=== PATIENT | female | born 1955 | race Caucasian/White ===

== ENCOUNTER 2024-03-04 19:43 | Emergency (ER) | payer MEDICARE, SELFPAY ==
[2024-03-04 19:45] VITALS: BP 181/87
--- NOTE | 2024-03-04 20:08 | ED.GENMED ---
History of Present Illness
General
Chief Complaint: Musculo-Skeletal Complaint
Time Seen by Provider: 03/04/24 20:06
History of Present Illness
History of Present Illness:
HPI: Patient tripped and fell on a curb injuring the left distal lower extremity and since that time has been unable to bear weight. She denies any other significant injury however she also reports some pain just posterior to the right shoulder
that she feels is 'bruised'. She took ibuprofen earlier.
EXAM:
GENERAL: Well appearing in no distress
CERVICAL SPINE: No midline c-spine tenderness with excellent AROM
HEAD: No evidence of craniofacial trauma
CHEST: No chest wall tenderness, normal heart sounds
LUNGS: Equal lung sounds, no respiratory distress
ABDOMEN: No abdominal tenderness, no peritoneal signs
EXTREMITIES: Normal active range of motion, some mild soft tissue swelling noted to the left midfoot, mild tenderness to palpation at the left calcaneus, good distal function, some slightly decreased active range of motion at the right shoulder but
no bony tenderness
NEURO: Excellent strength all extremities, appropriate mental status, normal speech/language
TIME OF INITIAL ENCOUNTER: 8:20 PM
NUMBER AND COMPLEXITY OF PROBLEMS ADDRESSED AT THE ENCOUNTER
� Chronic conditions affecting care: High blood pressure
� Acute Exacerbation and/or Progression of Chronic Illness: This is an acute problem
� Differential Diagnosis includes: Foot sprain, foot fracture, doubt ankle pathology
AMOUNT AND/OR COMPLEXITY OF DATA TO BE REVIEWED AND ANALYZED
� I performed an independent evaluation of and my interpretation is:
EKG:
CT:
X-rays: I personally viewed x-rays of the left foot and ankle. Suspect calcaneal fracture which is nondisplaced
Laboratory Studies:
Other:
� Review of other/old records: No old records available for review in [facility]
� Clinical information was obtained by an independent historian: I spoke to at bedside
� Prescriptions/Medications Considered but not given: Offered and considered narcotic analgesia given the associated fracture of the patient declines
� Further testing considered but not performed: Offered and considered x-ray of the right shoulder however the patient declines and she also doubts that this is fractured
RISK OF COMPLICATIONS AND/OR MORBIDITY OR MORTALITY OF PATIENT MANAGEMENT
� Social determinants of health affecting care: Lives at home
� Discussion with other providers: I discussed case and shared images with Dr. Velasquez, on-call for Ortho. She recommended cam boot however the patient cannot tolerate cam boot. Will try posterior splint.
� Escalation of care including admission/observation vs risk of discharge considered: Patient is to follow-up with orthopedics as an outpatient. The patient also refused to try crutches, she has walker at home. She is to
follow-up with orthopedics.
Phy Exam
Physical Exam
Physical Exam:
See HPI
Course
Orders/Labs/Results
Orders:
Orders
03/04/24
CR Foot - Left Min 3 Views Urgent
03/04/24 19:48
Ankle, left 3 view CR [CR Ankle - Left Min 3 Views ] Urgent
Comment:
Reason For Exam: left ankle injury, swelling/pain
03/04/24 20:48
boot [Ortho Boot Left- Treatment] ONCE
Short or tall?: Tall
03/04/24 21:00
Splints/Slings/Crut- Treatment ONCE
Crutches: Yes
Location: Left
Type of Splint: Short Leg
Vital Signs
Initial and Last Documented VS:
Initial Vital Signs
Temp Pulse Resp BP Pulse Ox
97.8 F 88 18 181 100
03/04/24 19:45 03/04/24 19:45 03/04/24 19:45 03/04/24 19:45 03/04/24 19:45
Last Documented Vital Signs
Temp Pulse Resp BP Pulse Ox
97.8 F 88 18 100
03/04/24 19:45 03/04/24 19:45 03/04/24 19:45 03/04/24 19:45 03/04/24 19:45
*Critical Care Note
Total Time (30-74mins, 75-104mins- exclusive of procedures): Not Applicable
ED Attending Note
-
Portions of this chart may have been created with voice recognition software.� Occasional wrong word or��sound alike� substitutions may have occurred due to the inherent limitations of voice recognition software.
Discharge Plan
Departure
Patient Disposition: Home (Routine Discharge)
Date of Disposition: 03/04/24
Time of Disposition: 21:39
Patient with high blood pressure during this ER visit?: Yes
Discharge Problem:
Calcaneal fracture
Instructions: Heel Fracture (DC)
Referrals:
Rosemary Velasquez I., DO [Active] - Next open appointment
Concepción Robison MD [Family Provider] -
Activity Restrictions/Additional Instructions:
The x-ray tonight shows a nondisplaced fracture of the calcaneus. I therefore spoke to Dr. Velasquez, the on-call orthopedist. She recommends that you follow-up with their email marketing intern ([facility]). Please call their office to arrange
follow-up. She recommended that you wear the boot initially however you could not comfortably wear this tonight. Therefore, we switched you to fiberglass splinting. Continue Tylenol and/or Motrin for pain.
Interventions
Interventions:
*Risk Screen - Suicide Last Done: 03/04/24 20:17
*General Assessment Last Done: 03/04/24 20:16
*ED COVID-19 Vaccine History Last Done: 03/04/24 20:16
Discharge Date and Time
Print Language: MONGOLIAN
[2024-03-04 20:16] VITALS: BMI 22.6
== END 2024-03-04 22:08 | disposition home or self-care (01) ==
LOC: EMR 19:43
PROVIDERS: EMERGENCY PHYSICIAN Emergency Medicine; FAMILY PHYSICIAN Internal Medicine
DX: S92.065A Nondisplaced intraarticular fracture of left calcaneus, initial encounter for closed fracture (principal); W01.0XXA Fall on same level from slipping, tripping and stumbling without subsequent striking against object, initial encounter; R03.0 Elevated blood-pressure reading, without diagnosis of hypertension
CPT/HCPCS: 99283; 29515; 73610; 73630

== ENCOUNTER → 2024-06-22 10:45 | Outpatient (REF) | payer MEDICARE, SELFPAY | LOC: HWRAD 10:45 | PROVIDERS: ATTENDING PHYSICIAN Physician Assistant Surgical; FAMILY PHYSICIAN Internal Medicine | DX: S92.015D Nondisplaced fracture of body of left calcaneus, subsequent encounter for fracture with routine healing (principal) | CPT/HCPCS: 73700 ==

== ENCOUNTER 2024-08-03 13:53 | Outpatient (RCR) | payer MEDICARE, SELFPAY | END 2024-08-03 23:59 | disposition home or self-care (01) | LOC: RPT 13:53 | PROVIDERS: FAMILY PHYSICIAN Obstetrics & Gynecology | DX: S92.015D Nondisplaced fracture of body of left calcaneus, subsequent encounter for fracture with routine healing (principal); R60.1 Generalized edema; Z73.6 Limitation of activities due to disability; M62.81 Muscle weakness (generalized); R26.2 Difficulty in walking, not elsewhere classified; M79.89 Other specified soft tissue disorders | CPT/HCPCS: 97110; 97140; 97162; 97535 ==

== ENCOUNTER 2024-08-14 10:02 | Outpatient (RCR) | payer MEDICARE, SELFPAY | END 2024-08-14 23:59 | disposition home or self-care (01) | LOC: RPT 10:02 | PROVIDERS: FAMILY PHYSICIAN Obstetrics & Gynecology | DX: S92.015D Nondisplaced fracture of body of left calcaneus, subsequent encounter for fracture with routine healing (principal); R60.1 Generalized edema; Z73.6 Limitation of activities due to disability; M62.81 Muscle weakness (generalized); R26.2 Difficulty in walking, not elsewhere classified; M79.89 Other specified soft tissue disorders; R26.89 Other abnormalities of gait and mobility | CPT/HCPCS: 97140 ==

== ENCOUNTER 2025-01-04 15:08 | Inpatient (IN) | payer MEDICARE, SELFPAY ==
[2025-01-04 12:22] VITALS: BP 133/69
[2025-01-04 12:51] VITALS: BP 133/64
[2025-01-04 13:00] VITALS: BP 136/75
[2025-01-04 13:10] LABS: % Basophils 0.3 % (0-2); % Eosinophils 0.2 % (0-6); % Immature Granulocytes 0.8 % (0-0.5); % Lymphocytes 7.2 % (20.5-51.1); % Neutrophils 80.5 % (42.2-75.2); Absolute Immature Granulocytes 0.1 10^3/uL (0-0.05); Absolute Lymphocytes 0.9 10^3/uL (1.2-3.4); Absolute Monocytes 1.3 10^3/uL (0.1-0.6); Absolute Neutrophils 9.5 10^3/uL (1.4-6.5); Hematocrit 38.7 % (37.0-47.0); Hemoglobin 14.5 g/dL (12.0-16.0); Mean Corp Hgb Conc. 37.5 g/dL (33.0-37.0); Mean Corpuscular Hgb 33.4 pg (27.0-31.0); Mean Corpuscular Volume 89.2 fL (81.0-99.0); Mean Platelet Volume 9.3 fL (7.4-10.4); Nucleated Red Blood Cells % 0 %; Platelet Count 378 10^3/uL (130-400); Red Blood Cell Count 4.34 10^6/uL (4.20-5.40); Red Cell Dist. Width 11.9 % (11.5-14.5); White Blood Cell Count 11.8 10^3/uL (4.8-10.8)
--- NOTE | 2025-01-04 13:28 | ED.GENMED ---
History of Present Illness
General
Chief Complaint: Dizziness
Source: patient
Exam Limitations: none
Time Seen by Provider: 01/04/25 13:18
History of Present Illness
History of Present Illness:
See MDM
Past History
Past History
ED Past Medical History: None
ED Past Surgical History: None
Social History
Tobacco: Smoker
Alcohol: None
Phy Exam
Physical Exam
Physical Exam:
See MDM
Course
Orders/Labs/Results
Orders:
Orders
01/04/25 12:26
Electrocardiogram (*1) Urgent
Reason for Study: Vertigo / Dizzy
01/04/25 12:27
EKG- Treatment ONCE
01/04/25 12:57
Complete Blood Count/With Diff Urgent
Comprehensive Metabolic Panel Urgent
TSH Reflex To Free T4 Urgent
Comment: ADD ON
Troponin I Urgent
01/04/25 13:26
Add On- LAB Urgent
Tests Added?: TSH reflex free T4
0.9% Sodium Chloride 1000 ml [Nss] 1,000 ml IV BOLUS
01/04/25 13:27
CT Head W/o Iv Contrast Urgent
Comment:
Reason For Exam: Dizzy
CR Chest - 2 Views Urgent
Comment:
Reason For Exam: Cough
01/04/25 13:43
Potassium Chloride Powder [Klor-Con] 40 meq PO NOW STA
Abnormal Lab Results
01/04/25
12:57
WBC 11.8 H 10^3/uL
(4.8-10.8)
MCH 33.4 H pg
(27.0-31.0)
MCHC 37.5 H g/dL
(33.0-37.0)
Abs Immat Gran (auto) 0.1 H 10^3/uL
(0-0.05)
Absolute Neuts (auto) 9.5 H 10^3/uL
(1.4-6.5)
Absolute Lymphs (auto) 0.9 L 10^3/uL
(1.2-3.4)
Absolute Monos (auto) 1.3 H 10^3/uL
(0.1-0.6)
Immature Gran % 0.8 H %
(0-0.5)
Neutrophils % 80.5 H %
(42.2-75.2)
Lymphocytes % 7.2 L %
(20.5-51.1)
Monocytes % 11.0 H %
(1.7-9.3)
Sodium 119 L* mmol/L
(135-145)
Potassium 3.0 L mmol/L
(3.5-5.1)
Chloride 77 L mmol/L
(98-107)
Carbon Dioxide 31 H mmol/L
(22-30)
BUN 25 H mg/dl
(7-17)
Glucose 110 H mg/dl
(70-99)
Total Protein 6.1 L g/dl
(6.3-8.2)
01/04/25 12:57
01/04/25 12:57
Vital Signs
Initial and Last Documented VS:
Initial Vital Signs
Temp Pulse Resp BP Pulse Ox
98.4 F 83 18 133/69 97
01/04/25 12:22 01/04/25 12:22 01/04/25 12:22 01/04/25 12:22 01/04/25 12:22
Last Documented Vital Signs
Temp Pulse Resp BP Pulse Ox
98.4 F 69 22 136/75 97
01/04/25 12:22 01/04/25 13:45 01/04/25 13:45 01/04/25 13:00 01/04/25 12:22
MDM/Problems Addressed
Differential Diagnosis Includes:
HPI and MDM Narrative:
69-year-old female presenting for evaluation of weakness and dizziness. Patient states she has been feeling sick and dizzy over the past week or so. She denies any sick contacts. Due to the ongoing symptoms, she saw her PCP today and was sent in
for further evaluation. The PCP had recommended blood work, IV fluids, CT head and chest x-ray. Patient has been complaining of a mild cough. Patient denies vertiginous symptoms. On my exam, she is weak and fatigued. She does have dry mucous
membranes. She does appear orthostatic when I sit her up quickly. She has no cerebellar signs. Negative [place]. I did notice bilateral conjunctivitis. Patient states this is abnormal for her but she saw her eye doctor tomorrow and was
told everything looked okay. We discussed the possibility of viral syndrome but patient declined COVID or flu testing. Will obtain the blood work and the test suggested by PCP and will reassess symptoms after fluids
Physical exam
General: Mildly fatigued
HEENT: protecting airway. Bilateral conjunctivitis. Pupils equal reactive.
Neck: supple
CV: No evidence of cyanosis. Regular rate and rhythm
Resp: No accessory muscle use. Lungs clear
Abd: Non-distended
Extremities: No deformities. No leg edema
Neuro: alert. Normal finger-nose bilaterally. Negative [place]
Psych: Normal affect
Skin: Intact
Problems Addressed including Acute and Chronic Conditions affecting care:
1. Dizziness
Acuity: acute
Prognosis: stable
Details: Will obtain EKG and troponin. Will obtain CT head
2. Dehydration
Acuity: acute
Prognosis: stable
Details: Will give IV fluid
3. Cough
Acuity: acute
Prognosis: stable
Details: Likely viral syndrome but will obtain chest x-ray. No tachycardia or hypoxia to suggest PE
4. Hyponatremia
Acuity: acute
Prognosis: unstable
Details: Will continue IV fluids.
5. Hypokalemia
Acuity: Acute
Prognosis: Stable
Details: Will give dose of oral potassium
Updates
Patient found to have sodium level of 119. She is clinically dry. Will give IV fluids. Patient also found to be hypokalemic. Will give p.o. potassium
CT head negative and chest x-ray clear. Will admit
Differential Diagnosis (but not limited to): Viral syndrome, dehydration, pneumonia
Testing considered: CT PE but she is neither tachycardic nor hypoxic and has no leg edema or pain to suggest
Drug therapy (if applicable): OTC meds, please see d/c instruction regarding Rx drugs
Amount and/or Complexity of Data Reviewed
Clinical info obtained from: Patient
External data reviewed: N/A
Labs I independently reviewed (but not limited to): Mild leukocytosis
Radiology: The CT scan was personally and independently reviewed. In addition, official CT report reviewed.
Pulse Ox: not hypoxic
EKG independently reviewed: Sinus rhythm, normal axis, no STEMI
C.O.D. Clerk: Sinus rhythm
Critical Care: The high probability of a clinically significant, sudden or life threatening deterioration of the endocrine/neurovascular system(s) required my full and direct attention, intervention and personal management. The aggregate critical
care time was 33 minutes. This time is in addition to time spent performing reported procedures but includes the following:
[x] Data Review and interpretation
[x] Patient assessment and monitoring of vital signs
[x] Documentation
[x] Medication orders and management
Risk of Complication:
Social Determinants of health: Good social support
Discussed with other providers: Hospitalist
Escalation of Care includes Admit/Obs: Given symptomatic hyponatremia, will admit
Occasional wrong word or 'sound a like' substitutions may have occurred due to the inherent limitations of voice recognition software. Read the chart carefully and recognize, using context, where substitutions have occurred.
*Critical Care Note
Total Time (30-74mins, 75-104mins- exclusive of procedures): 33 min
ED Attending Note
-
Portions of this chart may have been created with voice recognition software.� Occasional wrong word or��sound alike� substitutions may have occurred due to the inherent limitations of voice recognition software.
Discharge Plan
Departure
Patient Disposition: Admit
Date of Disposition: 01/04/25
Time of Disposition: 14:42
Admit to: IMU
Presentation/result/management discussed w/ accepting MD/DO: Hospitalist
Discharge Problem:
Acute hyponatremia, Hypokalemia
Prescriptions:
No Action
cetirizine [Zyrtec] 10 mg Tablet
10 mg PO DAILY
valsartan 160 mg Tablet
160 mg PO DAILY
cholecalciferol (vitamin D3) [Vitamin D3] 25 mcg (1,000 unit) Tablet
25 mcg PO DAILY
Referrals:
Jl Martinez MD [Family Provider] -
Interventions
Interventions:
*Risk Screen - Suicide Last Done: 01/04/25 12:22
*General Assessment Last Done: 01/04/25 12:22
*Neglect/Abuse Screening Last Done: 01/04/25 12:22
*ED- Fall Risk Assessment Last Done: 01/04/25 12:58
*ED COVID-19 Vaccine History Last Done: 01/04/25 12:58
ED- Neurological Assessment Last Done: 01/04/25 12:58
Discharge Date and Time
Print Language: HUNGARIAN
[2025-01-04] MEDS: NSS 1000 IV (13:30)
[2025-01-04 13:32] LABS: ALT (SGPT) 23 U/L (0-35); AST (SGOT) 27 U/L (14-36); Albumin 3.5 g/dl (3.5-5.0); Alkaline Phosphatase 95 U/L (38-126); Blood Urea Nitrogen 25 mg/dl (7-17); Calcium 8.7 mg/dl (8.4-10.2); Carbon Dioxide 31 mmol/L (22-30); Chloride 77 mmol/L (98-107); Glucose 110 mg/dl (70-99); Sodium 119 mmol/L (135-145); Total Bilirubin 0.6 mg/dl (0.2-1.3); Total Protein 6.1 g/dl (6.3-8.2); eGFR > 60.00
[2025-01-04 13:33] LABS: Troponin I < 0.012 ng/ml
[2025-01-04] MEDS: KLOR-CON 40 MEQ PO ×2 (13:52→19:36)
[2025-01-04 14:29] VITALS: BP 163/75
--- NOTE | 2025-01-04 14:42 | HPS.HSE ---
Family Physician
-
Family Physician: Jl Martinez
Chief Complaint
-
Dizziness/lethargy
History of Present Illness
HPI: 69-year-old female, past medical history of hypertension, recent Nondisplaced left calcaneus closed fracture, p/w dizziness and weakness. She admits to drinking more water recently.
Denies to other symptoms. No fever/chills, shortness of breath, chest pain, abdominal symptoms/GI symptoms.
In the ER, her sodium level was noted to be significantly low at 119
Medical History
Past Medical History
Past Medical History: Reports Other
Additional Past Medical History:
hypertension,
recent Nondisplaced left calcaneus closed fracture
Past Surgical History: Reports None
Social History
Tobacco: Smoker (4 pack/day)
Alcohol: Occasional
Living: With Family
Family History
Family History: Not pertinent
Allergies / Home Medications
Allergies reflects when Allergies were last updated in [facility].
Home Medications with original date entered in [facility]
Allergy/Medication List:
Allergies
Allergy/AdvReac Type Severity Reaction Status Date / Time
No Known Allergies Allergy Verified 01/04/25 12:22
Home Medications
cetirizine 10 mg tablet (Zyrtec) 10 mg PO DAILY 01/04/25
cholecalciferol (vitamin D3) 25 mcg (1,000 unit) tablet (Vitamin D3) 25 mcg PO DAILY 01/04/25
valsartan 160 mg tablet 160 mg PO DAILY 01/04/25
Review of Systems
-
Neurological: Reports See HPI and Dizzy
Physical Exam
Vital Signs
Vital Signs
Temp Pulse Resp BP Pulse Ox
36.9 C 69 22 136/75 97
01/04/25 12:22 01/04/25 13:45 01/04/25 13:45 01/04/25 13:00 01/04/25 12:22
Physical Exam
General: Well Developed, Well Nourished, No Apparent Distress, Comfortable and Conversant
HEENT: NormoCephalic, Moist mucous membranes and Atraumatic
Respiratory: Clear and Non Labored Respirations; No Accessory Resp Muscle Use
Cardiac: S1/S2 and Regular Rhythm; No Murmur or Rub
GI: Soft, Non Tender, Non Distended and Normal Bowel Sounds; No Organomegaly
Rectal: Deferred by Provider
Musculoskeletal: No Clubbing, No Cyanosis and No Edema
Skin: No Rash
Neuro: Awake, Alert and Oriented
Psych: Calm and Intact Judgment/Insight
Laboratory Results
-
01/04/25 12:57
01/04/25 12:57
Laboratory Results
Total Bilirubin 0.6 mg/dl (0.2-1.3) 01/04/25 12:57
AST 27 U/L (14-36) 01/04/25 12:57
ALT 23 U/L (0-35) 01/04/25 12:57
Alkaline Phosphatase 95 U/L (38-126) 01/04/25 12:57
Troponin I < 0.012 ng/ml 01/04/25 12:57
Data Reviewed
-
Lab Data: Labs Reviewed by me
Impression/Plan
-
HPI: 69-year-old female, past medical history of hypertension, recent Nondisplaced left calcaneus closed fracture, p/w dizziness and weakness. She admits to drinking more water recently.
Denies to other symptoms. No fever/chills, shortness of breath, chest pain, abdominal symptoms/GI symptoms.
In the ER, her sodium level was noted to be significantly low at 119
A/P:
# Symptomatic hyponatremia
Unknown Baseline sodium level
Check urine sodium/urine osmolality
Status post 1 L NSS given in ER for possible hypovolemia, observe off additional IV fluid.
Follow sodium level
Follow TSH
Renal consult
# Hypokalemia
Replete K
Check mag level
# Hypertension
Continue prior to admission valsartan for now with hold parameter
DVT prophylaxis: Lovenox SQ
Full code
[2025-01-04 15:25] LABS: Osmolality Urine 179 mOsm/kg (300-900)
[2025-01-04 15:54] LABS: Urine Sodium 21 mmol/L (30-90)
[2025-01-04 16:09] VITALS: BP 140/82
[2025-01-04 17:47] VITALS: BMI 21.0
--- NOTE | 2025-01-04 18:17 | W.CON.NEPH ---
Consultation
-
Date/Time Consultation Requested: January 04, 2025 at 2 PM
Date/Time Consultation Performed: January 04, 2025 at 4 PM
Requesting Provider: Dr. Prieto
Performing Provider: Dr. Grey
Reason for Consultation: Hyponatremia
Medical History
-
Chief Complaint: Dizziness with hyponatremia
History of Present Illness:
69-year-old female, past medical history of hypertension, recent Nondisplaced left calcaneus closed fracture, p/w dizziness and weakness.
Found to have a serum sodium of 119
smokes a pack a day no history of COPD.
No excessive water intake and no chronic NSAID use.
Renal consult for hyponatremia
Patient was hesitant to give me history she was upset about being in the hospital
Past Medical History
Hypertension tobacco use
Social History
Tobacco: Smoker
Family History
Family History: Not Pertinent
Allergies / Home Medications
Allergy/AdvReac Type Severity Reaction Status Date / Time
No Known Allergies Allergy Verified 01/04/25 12:22
�Medication �Instructions �Recorded �Confirmed �Type
cetirizine 10 mg tablet (Zyrtec) 10 mg PO DAILY 01/04/25 01/04/25 History
cholecalciferol (vitamin D3) 25 25 mcg PO DAILY 01/04/25 01/04/25 History
mcg (1,000 unit) tablet (Vitamin
D3)
valsartan 160 mg tablet 160 mg PO DAILY 01/04/25 01/04/25 History
Review of Systems
-
No chest pain or shortness of breath
All other systems: Negative unless noted
Physical Exam
Vital Signs
Vital Signs
Temp Pulse Resp BP Pulse Ox
98.2 F 79 18 140/82 100
01/04/25 16:09 01/04/25 16:09 01/04/25 16:01/04/25 16:09 01/04/25 16:09
Lab Results
WBC 11.8 10^3/uL (4.8-10.8) H 01/04/25 12:57
RBC 4.34 10^6/uL (4.20-5.40) 01/04/25 12:57
Hgb 14.5 g/dL (12.0-16.0) 01/04/25 12:57
Hct 38.7 % (37.0-47.0) 01/04/25 12:57
Plt Count 378 10^3/uL (130-400) 01/04/25 12:57
Sodium 119 mmol/L (135-145) L* 01/04/25 12:57
Potassium 3.0 mmol/L (3.5-5.1) L 01/04/25 12:57
Chloride 77 mmol/L (98-107) L 01/04/25 12:57
Carbon Dioxide 31 mmol/L (22-30) H 01/04/25 12:57
BUN 25 mg/dl (7-17) H 01/04/25 12:57
Creatinine 0.9 mg/dL (0.6-1.0) 01/04/25 12:57
eGFR > 60.00 01/04/25 12:57
Glucose 110 mg/dl (70-99) H 01/04/25 12:57
Calcium 8.7 mg/dl (8.4-10.2) 01/04/25 12:57
Albumin 3.5 g/dl (3.5-5.0) 01/04/25 12:57
Physical Exam
General no acute distress
HEENT no cephalic atraumatic extraocular muscle intact no scleral icterus no JVD neck supple
lungs clear to auscultation bilateral
heart regular S1-S2 positive
abdomen soft nontender positive bowel sounds
extremities no edema pulses present bilateral
Neurologically nonfocal alert and oriented x 3
Skin no lesions no abrasions no petechiae
Psych normal affect no bizarre behavior
Data Reviewed
-
Radiology: Image Personally Visualized and interpreted (No pulmonary nodule)
Labs: Labs Reviewed by me and Discussed with Patient
Assessment/Plan
-
69-year-old female, past medical history of hypertension, recent Nondisplaced left calcaneus closed fracture, p/w dizziness and weakness.
Sodium 119
Impression.
Hyponatremia.
Hypertension.
Tobacco use.
Plan.
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 But no pulmonary nodule on x-ray.
Urine osmolality 179 with a urine sodium of 21.
Status post IV fluid bolus in the ER.
Fluid restrict 1200 cc.
BMP every 6.
Stat BMP
Check TSH
Of note patient has not had blood work done in many years so uncertain to the chronicity
[2025-01-04 18:47] LABS: TSH Reflex To Free T4 0.47 uIU/ml (0.47-4.68)
[2025-01-04 19:04] LABS: Blood Urea Nitrogen 20 mg/dl (7-17); Calcium 8.3 mg/dl (8.4-10.2); Carbon Dioxide 32 mmol/L (22-30); Chloride 85 mmol/L (98-107); Estimated Creatinine Clearance 60 ml/min; Glucose 136 mg/dl (70-99); Potassium 3.1 mmol/L (3.5-5.1); Sodium 122 mmol/L (135-145); eGFR > 60.00
[2025-01-04 19:29] LABS: Magnesium 1.8 mg/dl (1.6-2.3)
[2025-01-05] VITALS: BP 152/68
[2025-01-05 00:29] LABS: Blood Urea Nitrogen 18 mg/dl (7-17); Carbon Dioxide 31 mmol/L (22-30); Chloride 86 mmol/L (98-107); Estimated Creatinine Clearance 69 ml/min; Glucose 116 mg/dl (70-99); Potassium 3.1 mmol/L (3.5-5.1); Sodium 123 mmol/L (135-145); eGFR > 60.00
[2025-01-05] MEDS: KCL 270 MEQ IV (01:43)
[2025-01-05] MEDS: KLOR-CON 40 MEQ PO (01:43)
--- NOTE | 2025-01-05 03:20 | PTCARENOTE ---
Late note due to patient care.
Repeat BMP showed an unimproved K+. Provider informed and replacement (oral and IV) were ordered. RN went to administer medications. Pt then explained that she had not finished the previous oral K+. Cup was found to be 1/2 empty. Provider notified.
Pt is hesitant to drink the oral supplement reporting stomach discomfort. Pt encouraged to eat a snack, PB crackers were chosen by the pt. Ice added to the solution due to pt preference. Pt reeducated on the importance and reason for the oral
medication. IV K+ running without issue.
After 3 check ins with the pt over a 1 hour period. pt has consumed 1 cracker and 1/4 of the cup (oral med).
[2025-01-05 06:37] LABS: Hematocrit 35.8 % (37.0-47.0); Hemoglobin 13.2 g/dL (12.0-16.0); Mean Corp Hgb Conc. 36.9 g/dL (33.0-37.0); Mean Corpuscular Hgb 32.8 pg (27.0-31.0); Mean Corpuscular Volume 89.1 fL (81.0-99.0); Mean Platelet Volume 9.5 fL (7.4-10.4); Platelet Count 367 10^3/uL (130-400); Red Blood Cell Count 4.02 10^6/uL (4.20-5.40); Red Cell Dist. Width 11.7 % (11.5-14.5); White Blood Cell Count 8.7 10^3/uL (4.8-10.8)
[2025-01-05 07:09] LABS: Blood Urea Nitrogen 14 mg/dl (7-17); Calcium 8.4 mg/dl (8.4-10.2); Carbon Dioxide 29 mmol/L (22-30); Chloride 89 mmol/L (98-107); Estimated Creatinine Clearance 60 ml/min; Glucose 104 mg/dl (70-99); Magnesium 1.8 mg/dl (1.6-2.3); Potassium 4.4 mmol/L (3.5-5.1); Sodium 122 mmol/L (135-145); eGFR > 60.00
[2025-01-05 07:25] VITALS: BP 140/72
[2025-01-05] MEDS: DIOVAN 160 MG PO (08:51)
[2025-01-05] MEDS: ZYRTEC 10 MG PO (08:52)
[2025-01-05] MEDS: SAMSCA 15 MG PO (10:13)
--- NOTE | 2025-01-05 12:09 | W.PN.NEPH.PH ---
Today's Communication / Plan
-
[place]
Assessment/Plan
-
69-year-old female, past medical history of hypertension, recent Nondisplaced left calcaneus closed fracture, p/w dizziness and weakness.
Sodium 119
Impression.
Hyponatremia.
Hypertension.
Tobacco use.
Plan.
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 But no pulmonary nodule on x-ray.
Urine osmolality 179 with a urine sodium of 21.
Status post IV fluid bolus in the ER.
Fluid restrict 1200 cc.
Check TSH
Of note patient has not had blood work done in many years so uncertain to the chronicity
[place] x 1
-
-
Date of Service: January 05, 2025
CC / HPI / ROS
-
Chief Complaint:
Dizziness and weakness
History of Present Illness:
Presents with hyponatremia 119
Review of Systems:
No chest pain shortness breath nausea or vomiting
Labs
-
Labs:
WBC 8.7 10^3/uL (4.8-10.8) 01/05/25 05:48
RBC 4.02 10^6/uL (4.20-5.40) L 01/05/25 05:48
Hgb 13.2 g/dL (12.0-16.0) 01/05/25 05:48
Hct 35.8 % (37.0-47.0) L 01/05/25 05:48
Plt Count 367 10^3/uL (130-400) 01/05/25 05:48
Sodium 122 mmol/L (135-145) L 01/05/25 05:48
Potassium 4.4 mmol/L (3.5-5.1) D 01/05/25 05:48
Chloride 89 mmol/L (98-107) L 01/05/25 05:48
Carbon Dioxide 29 mmol/L (22-30) 01/05/25 05:48
BUN 14 mg/dl (7-17) 01/05/25 05:48
Creatinine 0.8 mg/dL (0.6-1.0) 01/05/25 05:48
eGFR > 60.00 01/05/25 05:48
Glucose 104 mg/dl (70-99) H 01/05/25 05:48
Calcium 8.4 mg/dl (8.4-10.2) 01/05/25 05:48
Albumin 3.5 g/dl (3.5-5.0) 01/04/25 12:57
Physical Exam
-
Vital Signs:
Vital Signs
Temp Pulse Resp BP Pulse Ox
98.1 F 70 16 140/72 99
01/05/25 07:25 01/05/25 07:25 01/05/25 07:25 01/05/25 08:51 01/05/25 07:25
Respiratory:: Bilateral: CTA
Lung Excursion:: Normal
Abdomen:: Soft
Bowel Sounds:: Normal
Extremity Edema:: None: Bilateral:
--- NOTE | 2025-01-05 14:33 | W.PN.HOSP.TC ---
Today's Communication/Plan
-
Check Na later today.
Check renal note.
Assessment / Plan
Assessment / Plan
69-year-old female, past medical history of hypertension, recent Nondisplaced left calcaneus closed fracture, p/w dizziness and weakness. She admits to drinking more water recently.
Denies to other symptoms. No fever/chills, shortness of breath, chest pain, abdominal symptoms/GI symptoms.
In the ER, her sodium level was noted to be significantly low at 119
A/P:
1. Symptomatic hyponatremia
Unknown Baseline sodium level
Check urine sodium/urine osmolality
Status post 1 L NSS given in ER for possible hypovolemia,
observe off additional IV fluid.
Follow sodium level
Follow TSH
Renal consult
2. Hypokalemia
Replete K as needed (today 4.4)
Checked mag level (1.8)
3. Hypertension - Benign, chronic
Continue prior to admission valsartan for now with hold parameter
DVT prophylaxis: Lovenox SQ
Full code
Anticipated Discharge: 24 - 48 hours
Subjective/Interval History
-
Date of Service: January 05, 2025
'I feel awful'
Objective Data
-
Labs:
Laboratory Results
01/05/25 01/05/25
05:48 17:00
WBC 8.7
Hgb 13.2
Hct 35.8 L
Plt Count 367
Sodium 122 L Pending
Potassium 4.4 D Pending
Chloride 89 L Pending
Carbon Dioxide 29 Pending
BUN 14 Pending
Creatinine 0.8 Pending
Glucose 104 H Pending
Calcium 8.4 Pending
Vital Signs:
Vital Signs
Temp Pulse Resp BP Pulse Ox
98.1 F 70 16 140/72 99
05/03/25 07:25 01/05/25 07:25 01/05/25 07:25 01/05/25 08:51 01/05/25 07:25
I&O
01/04/25 01/05/25 01/06/25
06:59 06:59 06:59
Intake Total 1110 / 1110
Balance 1110 / 1110
Review of Systems
-
History Source: Patient
All other systems: Reviewed and negative
Physical Exam
-
General: Well Developed, Well Nourished, No Apparent Distress and Comfortable
HEENT: Nose Appears Normal and Ears Appear Normal
Respiratory: Clear to Auscultation
Cardiac: Regular Rhythm and S1/S2
GI: Soft, Nontender and Nondistended
Musculoskeletal: No Clubbing, No Cyanosis and No Edema
Skin: Warm and Dry
Neuro: Awake, Alert and Oriented
Psych: Calm
Data Reviewed
-
Labs: Labs Reviewed by me
[2025-01-05 15:35] VITALS: BP 140/69
[2025-01-05 19:18] LABS: Blood Urea Nitrogen 13 mg/dl (7-17); Calcium 8.4 mg/dl (8.4-10.2); Carbon Dioxide 28 mmol/L (22-30); Chloride 89 mmol/L (98-107); Estimated Creatinine Clearance 60 ml/min; Glucose 106 mg/dl (70-99); Potassium 3.7 mmol/L (3.5-5.1); Sodium 126 mmol/L (135-145); eGFR > 60.00
[2025-01-05 23:36] VITALS: BP 147/81
[2025-01-06 06:42] LABS: Hematocrit 38.2 % (37.0-47.0); Hemoglobin 13.8 g/dL (12.0-16.0); Mean Corp Hgb Conc. 36.1 g/dL (33.0-37.0); Mean Corpuscular Hgb 32.5 pg (27.0-31.0); Mean Corpuscular Volume 90.1 fL (81.0-99.0); Mean Platelet Volume 9.5 fL (7.4-10.4); Platelet Count 396 10^3/uL (130-400); Red Blood Cell Count 4.24 10^6/uL (4.20-5.40); Red Cell Dist. Width 11.9 % (11.5-14.5); White Blood Cell Count 9.2 10^3/uL (4.8-10.8)
[2025-01-06 06:51] LABS: Blood Urea Nitrogen 13 mg/dl (7-17); Calcium 8.4 mg/dl (8.4-10.2); Carbon Dioxide 29 mmol/L (22-30); Chloride 91 mmol/L (98-107); Estimated Creatinine Clearance 69 ml/min; Glucose 95 mg/dl (70-99); Potassium 3.6 mmol/L (3.5-5.1); Sodium 127 mmol/L (135-145); eGFR > 60.00
[2025-01-06 07:14] VITALS: BP 151/77
[2025-01-06] MEDS: DIOVAN 160 MG PO (08:49)
[2025-01-06] MEDS: ZYRTEC 10 MG PO (08:49)
--- NOTE | 2025-01-06 09:56 | W.PN.HOSP.TC ---
Today's Communication/Plan
-
Leaving AMA
Assessment / Plan
Assessment / Plan
Hospital course
69-year-old female, past medical history of hypertension, recent Nondisplaced left calcaneus closed fracture, p/w dizziness and weakness. She admits to drinking more water recently.
Denies to other symptoms. No fever/chills, shortness of breath, chest pain, abdominal symptoms/GI symptoms.
In the ER, her sodium level was noted to be significantly low at 119
Today her sodium is improved, but workup is not finished, tests and pending and her sodium is not back to normal. She has capacity to make choice to leave AMA. She has been advised of risks, voices understanding of this, and wishes to leave AMA.
1. Symptomatic hyponatremia - cause not clear and workup not finished.
Unknown Baseline sodium level
Checked urine sodium/urine osmolality
Status post 1 L NSS given in ER for possible hypovolemia,
observed off additional IV fluid.
TSH pending
2. Hypokalemia - resolved
Replete K as needed (today 4.4)
Checked mag level (1.8)
3. Hypertension - Benign, chronic
Continue prior to admission valsartan for now with hold parameter
Valsartan not known to cause hyponatremia
DVT prophylaxis while in hospital: Lovenox SQ
Full code
Anticipated Discharge: Today
Subjective/Interval History
-
Date of Service: January 06, 2025
Does not like food in hospital and wants to leave AMA
Objective Data
-
Labs:
Laboratory Results
01/06/25
04:30
WBC 9.2
Hgb 13.8
Hct 38.2
Plt Count 396
Sodium 127 L
Potassium 3.6
Chloride 91 L
Carbon Dioxide 29
BUN 13
Creatinine 0.7
Glucose 95
Calcium 8.4
Vital Signs:
Vital Signs
Temp Pulse Resp BP Pulse Ox
99.8 F 71 18 151/77 97
01/06/25 07:14 01/06/25 08:49 01/06/25 07:14 01/06/25 08:49 01/06/25 07:14
I&O
01/05/25 01/06/25 01/07/25
06:59 06:59 06:59
Intake Total 1110 / 1110 720 / 720 240 / 240
Balance 1110 / 1110 720 / 720 240 / 240
Review of Systems
-
Unable to obtain full review of systems at this time due to: Other (Leaving AMA)
Physical Exam
-
General: Other (Leaving AMA)
Neuro: Awake, Alert, Oriented and AO x 3
Psych: Calm and Intact Judgement/Insight
Data Reviewed
-
Labs: Labs Reviewed by me
--- NOTE | 2025-01-06 10:01 | W.DCSUMMARY ---
Discharge Summary
Discharge Data
Date of Admission: 01/04/25
Date of Discharge: 01/06/25
Total time spent discharging patient (in min): 51
-
Pending Results: Yes
Additional Pending Results:
TSH pending
Hospital Course
Hospital course
69-year-old female, past medical history of hypertension, recent Nondisplaced left calcaneus closed fracture, p/w dizziness and weakness. She admits to drinking more water recently.
Denies to other symptoms. No fever/chills, shortness of breath, chest pain, abdominal symptoms/GI symptoms.
In the ER, her sodium level was noted to be significantly low at 119
Today her sodium is improved, but workup is not finished, tests and pending and her sodium is not back to normal.
She has capacity to make choice to leave AMA. She has been advised of risks, voices understanding of this, and wishes to leave AMA.
1. Symptomatic hyponatremia - cause not clear and workup not finished.
Unknown Baseline sodium level
Checked urine sodium/urine osmolality
Status post 1 L NSS given in ER for possible hypovolemia,
observed off additional IV fluid.
TSH pending
2. Hypokalemia - resolved
Replete K as needed (today 4.4)
Checked mag level (1.8)
3. Hypertension - Benign, chronic
Continue prior to admission valsartan for now with hold parameter
Valsartan not known to cause hyponatremia
DVT prophylaxis while in hospital: Lovenox SQ
Full code
Discharge Plan
-
Patient Disposition: Against Medical Advice
Condition: Serious
Referrals:
Jl Martinez MD [Family Provider] -
Prescriptions:
No Action
cetirizine [Zyrtec] 10 mg Tablet
10 mg PO DAILY
valsartan 160 mg Tablet
160 mg PO DAILY
cholecalciferol (vitamin D3) [Vitamin D3] 25 mcg (1,000 unit) Tablet
25 mcg PO DAILY
Discharge Orders:
Discharge Patient (As Directed); Ordered 01/06/25
Ordered By: Saurabh Elizabeth
Discharge Date and Time
Print Language: BRITISH
--- NOTE | 2025-01-06 10:57 | CM ---
Patient unwilling to provide information for assessment. She stated that her spouse is on her way to pick her up. She signed IMM and stated that she absolutely does not want to appeal her discharge. IMM on chart after reviewed with patient.
== END 2025-01-06 11:40 | disposition left against medical advice (07) | DRG 641 ==
LOC: 4 EAST ACU 15:08
PROVIDERS: Emergency Medicine; ADMITTING PHYSICIAN Internal Medicine; ATTENDING PHYSICIAN Internal Medicine; CONSULT PHYSICIAN Internal Medicine Nephrology; EMERGENCY PHYSICIAN Student in an Organized Health Care Education/Training Program; FAMILY PHYSICIAN Internal Medicine
DX: E87.1 Hypo-osmolality and hyponatremia (principal); E87.6 Hypokalemia; I10 Essential (primary) hypertension; Z53.29 Procedure and treatment not carried out because of patient's decision for other reasons; F17.210 Nicotine dependence, cigarettes, uncomplicated; E86.0 Dehydration
CPT/HCPCS: 70450; 71046; 80048; 80053; 83735; 83935; 84300; 84443; 84484; 85025; 85027; 93005; 96360; 99291

== ENCOUNTER 2025-01-07 19:11 | Inpatient (IN) | payer MEDICARE, SELFPAY ==
[2025-01-07 14:37] VITALS: BP 141/76
[2025-01-07 15:12] LABS: ALT (SGPT) 20 U/L (0-35); AST (SGOT) 23 U/L (14-36); Albumin 3.4 g/dl (3.5-5.0); Alkaline Phosphatase 94 U/L (38-126); Blood Urea Nitrogen 22 mg/dl (7-17); Calcium 8.9 mg/dl (8.4-10.2); Carbon Dioxide 29 mmol/L (22-30); Chloride 88 mmol/L (98-107); Glucose 115 mg/dl (70-99); Potassium 3.5 mmol/L (3.5-5.1); Sodium 127 mmol/L (135-145); Total Bilirubin 0.7 mg/dl (0.2-1.3); Total Protein 6.1 g/dl (6.3-8.2); eGFR > 60.00
[2025-01-07 15:13] LABS: % Basophils 0.4 % (0-2); % Eosinophils 0.2 % (0-6); % Immature Granulocytes 0.6 % (0-0.5); % Lymphocytes 8.5 % (20.5-51.1); % Neutrophils 80.3 % (42.2-75.2); Absolute Basophils 0.1 10^3/uL (0-0.2); Absolute Immature Granulocytes 0.1 10^3/uL (0-0.05); Absolute Lymphocytes 1.2 10^3/uL (1.2-3.4); Absolute Monocytes 1.4 10^3/uL (0.1-0.6); Absolute Neutrophils 11.2 10^3/uL (1.4-6.5); Hematocrit 39.3 % (37.0-47.0); Hemoglobin 13.9 g/dL (12.0-16.0); Mean Corp Hgb Conc. 35.4 g/dL (33.0-37.0); Mean Corpuscular Hgb 32.5 pg (27.0-31.0); Mean Corpuscular Volume 91.8 fL (81.0-99.0); Mean Platelet Volume 9.3 fL (7.4-10.4); Nucleated Red Blood Cells % 0 %; Platelet Count 463 10^3/uL (130-400); Red Blood Cell Count 4.28 10^6/uL (4.20-5.40); Red Cell Dist. Width 12.1 % (11.5-14.5); White Blood Cell Count 13.9 10^3/uL (4.8-10.8)
--- NOTE | 2025-01-07 18:25 | ED.GENMED ---
History of Present Illness
General
Chief Complaint: Abnormal Lab Value
Time Seen by Provider: 01/07/25 18:25
History of Present Illness
History of Present Illness:
TIME OF INITIAL ENCOUNTER:
HPI: The patient was admitted for hyponatremia with initial sodium of 119 the other day and signed out AMA yesterday. The patient was given IV fluids and Samsca. The chronicity of the hyponatremia is unclear as she has not had blood work done in
a long time. She states she has not been on HCTZ.
EXAM:
GENERAL: Well appearing in no distress
HEENT: Moist oral mucosa
CARDIOVASCULAR: No murmurs, normal heart rate, regular rhythm, No chest wall tenderness
PULMONARY: No respiratory distress, breath sounds are clear and equal
ABDOMEN: Soft with no peritoneal signs, no tenderness
NEUROLOGIC: Excellent strength all extremities, no coordination deficits
PSYCHIATRIC: Appropriate mental status, normal insight and judgement, but appears slightly upset
EXTREMITIES: Nontender, no edema, moves all extremities equally
SKIN: No rash, no lesions
NUMBER AND COMPLEXITY OF PROBLEMS ADDRESSED AT THE ENCOUNTER
� Chronic conditions affecting care: High blood pressure
� Acute Exacerbation and/or Progression of Chronic Illness: This is presumably an acute problem
� Differential Diagnosis includes: Hyponatremia, dehydration, SIADH
AMOUNT AND/OR COMPLEXITY OF DATA TO BE REVIEWED AND ANALYZED
� I performed an independent evaluation of and my interpretation is:
EKG:
CT:
X-rays:
Laboratory Studies: Sodium 127, potassium 3.5, white count 13.9
Other:
� Review of other/old records: From the other day, urine osmolarity was 179 and urine sodium was 21
� Clinical information was obtained by an independent historian: Spoke to at bedside
� Prescriptions/Medications Considered but not given: Did not give any IV fluids as she was recommended to be fluid restricted.
� Further testing considered but not performed:
RISK OF COMPLICATIONS AND/OR MORBIDITY OR MORTALITY OF PATIENT MANAGEMENT
� Social determinants of health affecting care: Lives at home
� Discussion with other providers:Dr. Jung for admission
� Escalation of care including admission/observation vs risk of discharge considered: Although leukocytosis is noted she has no infectious type of symptoms. Sodium remains low at 127 she does not feel well still. She is willing
to stay in the hospital for further evaluation and management.
ANY OTHER UPDATES:
Past History
Past History
ED Past Medical History: None
ED Past Surgical History: None
Social History
Tobacco: Smoker
Alcohol: None
Phy Exam
Physical Exam
Physical Exam:
See HPI
Course
Orders/Labs/Results
Orders:
Orders
01/07/25 14:42
Complete Blood Count/With Diff Urgent
Comprehensive Metabolic Panel Urgent
01/07/25 18:56
Admit/Transfer Patient As Directed
Co-Sign Provider:
Level of Care: Inpatient admission
Assign to:: Medical/Surgical
Physician / Group: rober
Diagnosis: hyponatremia
Reason for Hospitalization: hyponatremia
Expected length of stay greater than two midnights?: Yes
ELOS- Estimated Length of Stay in days: 2
I certify the patient meets the requirements for IP care: Yes
01/07/25 18:58
Code Status As Directed
Resuscitation Status: Do not resuscitate
Reached after discussion with pt or family/Healthcare POA: Yes
DNR Bracelet Application ONCE
PRN Pain Medication Management As Directed
May give lesser potent ordered pain med per pt: Yes
preference::
Protocol:: Medication orders for pain may be administered in a
manner that supports deferring to patient preference
when the pt is:
- Requesting an ordered lesser potent pain medication.
Least to most potent pain medications are defined
as: acetaminophen < NSAID < tramadol < opioids
(morphine, oxycodone, hydromorphone).
- Requesting a lesser dose of the same medication IF
ORDERED.
- Requesting a less intrusive route of administration
if both routes are prescribed by the provider (PO <
IV).
Abnormal Lab Results
01/07/25
14:42
WBC 13.9 H 10^3/uL
(4.8-10.8)
MCH 32.5 H pg
(27.0-31.0)
Plt Count 463 H 10^3/uL
(130-400)
Abs Immat Gran (auto) 0.1 H 10^3/uL
(0-0.05)
Absolute Neuts (auto) 11.2 H 10^3/uL
(1.4-6.5)
Absolute Monos (auto) 1.4 H 10^3/uL
(0.1-0.6)
Immature Gran % 0.6 H %
(0-0.5)
Neutrophils % 80.3 H %
(42.2-75.2)
Lymphocytes % 8.5 L %
(20.5-51.1)
Monocytes % 10.0 H %
(1.7-9.3)
Sodium 127 L mmol/L
(135-145)
Chloride 88 L mmol/L
(98-107)
BUN 22 H mg/dl
(7-17)
Glucose 115 H mg/dl
(70-99)
Total Protein 6.1 L g/dl
(6.3-8.2)
Albumin 3.4 L g/dl
(3.5-5.0)
01/07/25 14:42
01/07/25 14:42
Vital Signs
Initial and Last Documented VS:
Initial Vital Signs
Temp Pulse Resp Pulse Ox
37.2 C 65 18 96
01/07/25 14:33 01/07/25 14:33 01/07/25 14:33 01/07/25 14:33
Last Documented Vital Signs
Temp Pulse Resp BP Pulse Ox
36.7 C 66 18 157/79 100
01/07/25 19:29 01/07/25 19:29 01/07/25 19:29 01/07/25 19:29 01/07/25 19:29
*Critical Care Note
Total Time (30-74mins, 75-104mins- exclusive of procedures): Not Applicable
ED Attending Note
-
Portions of this chart may have been created with voice recognition software.� Occasional wrong word or��sound alike� substitutions may have occurred due to the inherent limitations of voice recognition software.
Discharge Plan
Departure
Patient Disposition: Admit
Date of Disposition: 01/07/25
Time of Disposition: 18:33
Presentation/result/management discussed w/ accepting MD/DO: Hospitalist
Discharge Problem:
Hyponatremia
Interventions
Interventions:
*Risk Screen - Suicide Last Done: 01/07/25 14:36
*General Assessment Last Done: 01/07/25 14:36
*Neglect/Abuse Screening Last Done: 01/07/25 14:36
*ED COVID-19 Vaccine History Last Done: 01/07/25 14:36
--- NOTE | 2025-01-07 19:05 | HPS.HSE ---
Family Physician
-
Family Physician: Jl Martinez
Chief Complaint
-
dizziness
History of Present Illness
69-year-old female past medical history of hypertension, recent nondisplaced left calcaneal fracture presenting for feeling unwell. She was admitted on 01/04 after coming in for dizziness and weakness ongoing for 2 weeks prior. She was found to be
severely hyponatremic with sodium of 119. She was seen by nephrology and given IV fluid bolus, Samsca and started on 1200 cc fluid restriction. Her sodium had improved to 127. She left AMA because she was scared of what was going on.
She states that she does not feel better compared to before she came in for admission but her disagrees and states that she does feel a little bit better.
She denies any fevers or chills, cough, congestion, sore throat, headache, blurry vision, nausea vomiting, diarrhea, abdominal pain or urinary symptoms. Denies chest pain or shortness of breath.
Drinks alcohol socially. She smokes under a pack of cigarettes a day.
She states that she has been feeling bad mood recently. Denies any psychosocial stressors.
Medical History
Past Medical History
Past Medical History: Reports Other (hypertension, recent nondisplaced left calcaneal fracture)
Past Surgical History: Reports Other (hypertension, recent nondisplaced left calcaneal fracture)
Social History
Tobacco: Smoker
Alcohol: Occasional
Drug: None
Family History
Family History: Not pertinent
Allergies / Home Medications
Allergies reflects when Allergies were last updated in [facility].
Home Medications with original date entered in [facility]
Allergy/Medication List:
Allergies
Allergy/AdvReac Type Severity Reaction Status Date / Time
No Known Allergies Allergy Verified 01/04/25 12:22
Home Medications
cetirizine 10 mg tablet (Zyrtec) 10 mg PO DAILY 01/04/25
valsartan 160 mg tablet 160 mg PO DAILY 01/04/25
hydrochlorothiazide 25 mg tablet 25 mg PO DAILY 01/07/25
Review of Systems
-
History Source: Patient
A 12 point ROS was completed and negative except as noted: Yes
Constitutional: Reports No Symptoms
EENT: Reports No Symptoms
Respiratory: Reports No Symptoms
Cardiac: Reports No Symptoms
Abdomen/GI: Reports No Symptoms
: Reports No Symptoms
Musculoskeletal: Reports No Symptoms
Skin: Reports No Symptoms
Neurological: Reports No Symptoms
Endocrine: Reports No Symptoms
Hematologic/Lymphatic: Reports No Symptoms
Psych: Reports No Symptoms
Physical Exam
Vital Signs
Vital Signs
Temp Pulse Resp BP Pulse Ox
98.9 F 65 18 141/76 96
01/07/25 14:33 01/07/25 14:33 01/07/25 14:33 01/07/25 14:37 01/07/25 14:33
Physical Exam
General: Well Developed, Well Nourished and No Apparent Distress
HEENT: NormoCephalic, Moist mucous membranes and Atraumatic
Respiratory: Clear
Cardiac: S1/S2 and Regular Rhythm; No Murmur or Rub
GI: Soft, Non Tender, Non Distended and Normal Bowel Sounds; No Organomegaly
Rectal: Deferred by Provider
Musculoskeletal: No Clubbing, No Cyanosis and No Edema
Skin: No Rash
Neuro: Nonfocal/grossly intact
Laboratory Results
-
01/07/25 14:42
01/07/25 14:42
Laboratory Results
Total Bilirubin 0.7 mg/dl (0.2-1.3) 01/07/25 14:42
AST 23 U/L (14-36) 01/07/25 14:42
ALT 20 U/L (0-35) 01/07/25 14:42
Alkaline Phosphatase 94 U/L (38-126) 01/07/25 14:42
Data Reviewed
-
Lab Data: Labs Reviewed by me
Old Records: Reviewed
Impression/Plan
-
IMPRESSION:
PLAN:
# Dizziness, weakness possibly secondary to hyponatremia, unclear etiology
-Check orthostatic vitals
- Sodium 127 from 119 on 01/04
- Continue 1200 cc fluid restriction
- Nephrology consulted
- Not completely sure if symptoms are secondary to hyponatremia, likely a psychiatric component of depression
- Chest x-ray from 01/04 unremarkable
- TSH was normal
# Leukocytosis
- Unclear etiology, no signs of infection
Essential hypertension
- Continue valsartan
- Patient not on hydrochlorothiazide although listed on her med rec
Recent nondisplaced left calcaneus closed fracture
Current smoker
History of allergies
- Continue Zyrtec
DNR/DNI
DVT prophylaxis�heparin
Regular diet
[2025-01-07 19:29] VITALS: BP 157/79
[2025-01-08 02:00] VITALS: BP 166/73; BMI 20.1
--- NOTE | 2025-01-08 02:31 | PTCARENOTE ---
Pt arrived to floor via stretcher from the ED. Pt AAOx3, pt ambulatory into room without difficulty. Pt reports feeling dizzy, BP 166/73. Very red blood shot eyes. Pt reports feeling tired. Denies any complaints of pain. Refusing to get changed into
hospital gown. No IV in place. Pt hoping to be discharged in am. Pt appears to be depressed by the answers provided upon admission, although pt denies feeling down or depressed. emotional support provided. Call granados in reach. Will continue to
monitor.
[2025-01-08 08:04] VITALS: BP 148/72
[2025-01-08] MEDS: DIOVAN 160 MG PO (08:29)
[2025-01-08] MEDS: ZYRTEC 10 MG PO (08:29)
[2025-01-08 08:32] LABS: % Basophils 0.5 % (0-2); % Eosinophils 0.3 % (0-6); % Immature Granulocytes 0.5 % (0-0.5); % Lymphocytes 9.4 % (20.5-51.1); % Monocytes 10.7 % (1.7-9.3); % Neutrophils 78.6 % (42.2-75.2); Absolute Basophils 0.1 10^3/uL (0-0.2); Absolute Immature Granulocytes 0.1 10^3/uL (0-0.05); Absolute Monocytes 1.1 10^3/uL (0.1-0.6); Hematocrit 36.6 % (37.0-47.0); Hemoglobin 13.1 g/dL (12.0-16.0); Mean Corp Hgb Conc. 35.8 g/dL (33.0-37.0); Mean Corpuscular Hgb 32.9 pg (27.0-31.0); Nucleated Red Blood Cells % 0 %; Platelet Count 419 10^3/uL (130-400); Red Blood Cell Count 3.98 10^6/uL (4.20-5.40); White Blood Cell Count 10.2 10^3/uL (4.8-10.8)
[2025-01-08 08:53] LABS: ALT (SGPT) 17 U/L (0-35); AST (SGOT) 19 U/L (14-36); Alkaline Phosphatase 85 U/L (38-126); Blood Urea Nitrogen 17 mg/dl (7-17); Calcium 8.7 mg/dl (8.4-10.2); Carbon Dioxide 32 mmol/L (22-30); Chloride 91 mmol/L (98-107); Estimated Creatinine Clearance 68 ml/min; Glucose 102 mg/dl (70-99); Potassium 3.7 mmol/L (3.5-5.1); Sodium 129 mmol/L (135-145); Total Bilirubin 0.8 mg/dl (0.2-1.3); Total Protein 5.5 g/dl (6.3-8.2); eGFR > 60.00
--- NOTE | 2025-01-08 11:00 | CM ---
Patient seen bedside.
IA completed.
Patient lives with spouse in a 2 story home.
Patient independent prior to admission, drives.
Patient does not use assistive devices.
Patient has not had VN or skilled rehab.
Patient aware of CM availability should needs arise.
IMM completed.
PCP: Dr Martinez
Pharmacy: [facility]
Plan: home with no needs anticipated.
--- NOTE | 2025-01-08 14:25 | W.PN.HOSP.TC ---
Today's Communication/Plan
-
Assessment / Plan
Assessment / Plan
General: No Apparent Distress, Comfortable and Conversant
HEENT: NormoCephalic, Moist mucous membranes, Atraumatic
Respiratory: Clear and Non Labored Respirations
Cardiac: S1/S2 and Regular Rhythm; No Rub or Gallop
GI: Soft, Non Tender, Non Distended and Normal Bowel Sounds
Musculoskeletal: No Edema, no deformity
Skin: Warm and dry
: NO Braun
Neuro: Awake, Alert, Nonfocal/grossly intact
Psych: Calm and Intact Judgment/Insight
Ms. English is a 69-year-old female with a medical history of hypertension and recent nondisplaced left calcaneal fracture who presented with ongoing fatigue. She was recently admitted on 01/04 with symptomatic hyponatremia, with initial serum sodium
of 119. She had received IV fluid and tolvaptan at that time in addition to 1.2 L/day fluid restriction. Her sodium had improved to 127, however she left AGAINST MEDICAL ADVICE on 01/06 due to anxiety. Subsequently she returned for continued
treatment after feeling persistent fatigue at home. She has been readmitted.
Symptomatic hyponatremia:
- Appears euvolemic
- Serum sodium significantly improved at 129 today, was 119 at time of initial admission on 01/04
- Still reports extreme fatigue
- Continue 1.2 L/day fluid restriction
- Appreciate nephrology guidance
Fatigue:
- Reports persistent fatigue for the past 2 to 3 weeks
- No clear etiology, serum sodium has significantly improved but patient does not feel any better, had a leukocytosis of almost 14,000 yesterday down to 10,000 today
- Will check for influenza and COVID
- She also reported recent unintentional weight loss, uncertain about exactly how many pounds she has lost and over what period of time
- Chest x-ray 01/04 unremarkable, she is a longtime smoker, will check CT chest abdomen and pelvis
Hypertension:
- Chronic, reasonably well-controlled
- Continue home valsartan 160 mg daily, holding home HCTZ due to hyponatremia
DVT prophylaxis: Subcu heparin
CODE STATUS: DNR
Total time spent on today's encounter was 40 minutes
Anticipated Discharge: 24 - 48 hours
Subjective/Interval History
-
Date of Service: January 08, 2025
Patient was seen and examined at bedside this morning. Reports feeling very fatigued. Sodium level slightly improved at 129.
Objective Data
-
Labs:
Laboratory Results
01/08/25
08:11
WBC 10.2
Hgb 13.1
Hct 36.6 L
Plt Count 419 H
Sodium 129 L
Potassium 3.7
Chloride 91 L
Carbon Dioxide 32 H
BUN 17
Creatinine 0.7
Glucose 102 H
Calcium 8.7
Total Bilirubin 0.8
AST 19
ALT 17
Alkaline Phosphatase 85
Vital Signs:
Vital Signs
Temp Pulse Resp BP Pulse Ox
98.7 F 71 17 148/78 96
01/08/25 08:04 01/08/25 08:29 01/08/25 08:04 01/08/25 08:29 01/08/25 11:07
Review of Systems
-
History Source: Patient
All other systems: Reviewed and negative
Constitutional: Reports Fatigue
Physical Exam
-
General: No Apparent Distress
[2025-01-08 15:31] LABS: COVID-19 Antigen Negative (Negative)
[2025-01-08 15:44] VITALS: BP 130/65
--- NOTE | 2025-01-08 19:45 | W.CON.NEPH ---
Consultation
-
Date/Time Consultation Requested: 01/08/2025 9 AM
Date/Time Consultation Performed: 01/08/2025 2 PM
Requesting Provider: Dr. Jung
Performing Provider: Dr. Johnson
Reason for Consultation: Hyponatremia
Medical History
-
Chief Complaint: Dizziness with hyponatremia
History of Present Illness:
69-year-old female with hypertension, recent Nondisplaced left calcaneus closed fracture, p/w dizziness and weakness several days ago. She left AGAINST MEDICAL ADVICE. She then returned because she had persistent dizziness.
Found to have a serum sodium of 119 during her first admission. She received a dose of Samsca. Upon discharge her sodium level was 127. Today it is 127 still
smokes a pack a day no history of COPD.
She refuses to quantify her fluid intake but says that she has a glass that she feels with a tap over the course of the day.
She states that her dizziness occurs primarily with changing position though she believes that it may also occur without change in position sometimes. She denies any issues with medications or intake. She denies being on a water pill or diuretic.
Past Medical History
Hypertension
Left calcaneus fracture
Social History
Tobacco: Smoker
Alcohol: None
Family History
Hypothyroidism
Family History: Not Pertinent
Allergies / Home Medications
Allergy/AdvReac Type Severity Reaction Status Date / Time
No Known Allergies Allergy Verified 01/04/25 12:22
�Medication �Instructions �Recorded �Confirmed �Type
cetirizine 10 mg tablet (Zyrtec) 10 mg PO DAILY 01/04/25 01/07/25 History
valsartan 160 mg tablet 160 mg PO DAILY 01/04/25 01/07/25 History
hydrochlorothiazide 25 mg tablet 25 mg PO DAILY 01/07/25 01/07/25 History
Review of Systems
-
Dizziness
All other systems: Negative unless noted
Physical Exam
Vital Signs
Vital Signs
Temp Pulse Resp BP Pulse Ox
98.5 F 69 17 130/65 98
01/08/25 15:44 01/08/25 15:44 01/08/25 15:44 01/08/25 15:44 01/08/25 15:44
Lab Results
WBC 10.2 10^3/uL (4.8-10.8) 01/08/25 08:11
RBC 3.98 10^6/uL (4.20-5.40) L 01/08/25 08:11
Hgb 13.1 g/dL (12.0-16.0) 01/08/25 08:11
Hct 36.6 % (37.0-47.0) L 01/08/25 08:11
Plt Count 419 10^3/uL (130-400) H 01/08/25 08:11
Sodium 129 mmol/L (135-145) L 01/08/25 08:11
Potassium 3.7 mmol/L (3.5-5.1) 01/08/25 08:11
Chloride 91 mmol/L (98-107) L 01/08/25 08:11
Carbon Dioxide 32 mmol/L (22-30) H 01/08/25 08:11
BUN 17 mg/dl (7-17) 01/08/25 08:11
Creatinine 0.7 mg/dL (0.6-1.0) 01/08/25 08:11
eGFR > 60.00 01/08/25 08:11
Glucose 102 mg/dl (70-99) H 01/08/25 08:11
Calcium 8.7 mg/dl (8.4-10.2) 01/08/25 08:11
Albumin 3.0 g/dl (3.5-5.0) L 01/08/25 08:11
Laboratory Tests
01/04/25 01/04/25 01/06/25
12:57 15:10 04:30
Sodium 127 L
TSH (Reflex) 0.47
Urine Osmolality 179 L
Urine Sodium 21 L
Physical Exam
Patient is awake alert oriented and in no distress. Mood and affect were pleasant, insight and judgment were good. Pupils are equal round and reactive to light, extraocular movements are intact, sclera were anicteric. Hearing was normal, ears and
nose are intact. Oropharynx was clear. Neck was supple with trachea midline and no thyromegaly. Heart was regular rate and rhythm without rubs. Lower extremities without edema. Lungs were clear to auscultation bilaterally and with normal
excursion. Abdomen was soft, nontender, with normal active bowel sounds, and no hepatosplenomegaly. Skin was without rash and with normal turgor.
Data Reviewed
-
Radiology: Image Personally Visualized and interpreted (Chest x-ray 01-27 pulmonary no acute disease)
CT Scan: Report Reviewed by me (CT head 01-27 no acute disease chronic volume loss)
Labs: Labs Reviewed by me
Old Records: Reviewed
Assessment/Plan
-
Impression.
Hyponatremia.
Hypertension.
Tobacco use.
Dizziness
Plan.
TSH within normal limits
Follow BMP
Fluid restriction 40 ounces per day
No hypertonic or Samsca required
Check orthostatics May use saline if needed
[2025-01-08 23:00] VITALS: BP 162/80
[2025-01-09 07:39] VITALS: BP 138/87
[2025-01-09 07:40] VITALS: BP 123/68; BP 134/90; BP 138/87; PULSE 113; PULSE 116; PULSE 99
[2025-01-09 08:46] LABS: % Basophils 0.6 % (0-2); % Eosinophils 0.3 % (0-6); % Immature Granulocytes 0.5 % (0-0.5); % Lymphocytes 9.8 % (20.5-51.1); % Monocytes 11.2 % (1.7-9.3); % Neutrophils 77.6 % (42.2-75.2); Absolute Basophils 0.1 10^3/uL (0-0.2); Absolute Immature Granulocytes 0.1 10^3/uL (0-0.05); Absolute Monocytes 1.1 10^3/uL (0.1-0.6); Absolute Neutrophils 7.8 10^3/uL (1.4-6.5); Hematocrit 39.4 % (37.0-47.0); Mean Corp Hgb Conc. 35.5 g/dL (33.0-37.0); Mean Corpuscular Hgb 32.4 pg (27.0-31.0); Mean Corpuscular Volume 91.2 fL (81.0-99.0); Mean Platelet Volume 9.2 fL (7.4-10.4); Nucleated Red Blood Cells % 0 %; Platelet Count 427 10^3/uL (130-400); Red Blood Cell Count 4.32 10^6/uL (4.20-5.40); Red Cell Dist. Width 12.1 % (11.5-14.5); White Blood Cell Count 10.1 10^3/uL (4.8-10.8)
[2025-01-09] MEDS: DIOVAN 160 MG PO (08:59)
[2025-01-09] MEDS: ZYRTEC 10 MG PO (08:59)
[2025-01-09] MEDS: OMNIPAQUE 50 ML PO (09:05)
[2025-01-09 09:22] LABS: Blood Urea Nitrogen 19 mg/dl (7-17); Calcium 8.9 mg/dl (8.4-10.2); Carbon Dioxide 30 mmol/L (22-30); Chloride 94 mmol/L (98-107); Estimated Creatinine Clearance 59 ml/min; Glucose 114 mg/dl (70-99); Potassium 4.1 mmol/L (3.5-5.1); Sodium 133 mmol/L (135-145); eGFR > 60.00
--- NOTE | 2025-01-09 10:15 | CM ---
Patient seen bedside.
Patient for CT scan today.
Patient denies home care needs.
Plan: home no needs when stable, spouse will transport.
--- NOTE | 2025-01-09 13:27 | W.DCSUMMARY ---
Discharge Summary
Discharge Data
Date of Admission: 01/07/25
Date of Discharge: 01/09/25
-
Pending Results: No
Hospital Course
Ms. English is a 69-year-old female with a medical history of hypertension and recent nondisplaced left calcaneal fracture who presented with ongoing fatigue. She was recently admitted on 01/04 with symptomatic hyponatremia, with initial serum sodium
of 119. She had received IV fluid and tolvaptan at that time in addition to 1.2 L/day fluid restriction. Her sodium had improved to 127, however she left AGAINST MEDICAL ADVICE on 01/06 due to anxiety. Subsequently she returned for continued
treatment after feeling persistent fatigue at home. She was readmitted. She had a leukocytosis of almost 14,000 at time of readmission which has improved and stabilized around 10,000.
Her sodium levels steadily improved and were 133 on day of discharge. Her orthostatic vital signs were normal. She is still experiencing generalized fatigue. She underwent CT of chest abdomen and pelvis with oral and IV contrast. Imaging was
generally unremarkable other than a small irregular groundglass opacity in the upper lobe of her right lung likely infectious or inflammatory, however malignancy could not be excluded. She has been started on antibiotics for potential
community-acquired pneumonia. She has been advised that she will need close follow-up with her PCP in the outpatient setting for ongoing monitoring of her right upper lobe lung abnormality in order to be sure it is not cancerous. She has been
advised to repeat lab work in 7 days to monitor her electrolytes and white blood cells.
At time of hospital discharge she was medically stable.
General: No Apparent Distress, Comfortable and Conversant
HEENT: NormoCephalic, Moist mucous membranes, Atraumatic
Respiratory: Clear and Non Labored Respirations
Cardiac: S1/S2 and Regular Rhythm; No Rub or Gallop
GI: Soft, Non Tender, Non Distended and Normal Bowel Sounds
Musculoskeletal: No Edema, no deformity
Skin: Warm and dry
: NO Braun
Neuro: Awake, Alert, Nonfocal/grossly intact
Psych: Calm and Intact Judgment/Insight
More than 30 minutes spent in discharge including
Final examination of the patient
Summarizing hospital stay
Instructions for continuing care to all relevant caregivers
Preparation of discharge records, prescriptions, and referral forms
Total time spent (in minutes): 40
Discharge Plan
-
Patient Disposition: Home (Routine Discharge)
Discharge Diagnosis/Procedures: Symptomatic hyponatremia, community-acquired pneumonia
Diet: Restrict fluids to 64 oz
Activity: As tolerated
Blood Work: Complete blood count with differential and basic metabolic panel to monitor WBCs and electrolytes
Activity Restrictions/Additional Instructions:
Ms. English is a 69-year-old female with a medical history of hypertension and recent nondisplaced left calcaneal fracture who presented with ongoing fatigue. She was recently admitted on 01/04 with symptomatic hyponatremia, with initial serum sodium
of 119. She had received IV fluid and tolvaptan at that time in addition to 1.2 L/day fluid restriction. Her sodium had improved to 127, however she left AGAINST MEDICAL ADVICE on 01/06 due to anxiety. Subsequently she returned for continued
treatment after feeling persistent fatigue at home. She was readmitted. She had a leukocytosis of almost 14,000 at time of readmission which has improved and stabilized around 10,000.
Her sodium levels steadily improved and were 133 on day of discharge. Her orthostatic vital signs were normal. She is still experiencing generalized fatigue. She underwent CT of chest abdomen and pelvis with oral and IV contrast. Imaging was
generally unremarkable other than a small irregular groundglass opacity in the upper lobe of her right lung likely infectious or inflammatory, however malignancy could not be excluded. She has been started on antibiotics for potential
community-acquired pneumonia. She has been advised that she will need close follow-up with her PCP in the outpatient setting for ongoing monitoring of her right upper lobe lung abnormality in order to be sure it is not cancerous. She has been
advised to repeat lab work in 7 days to monitor her electrolytes and white blood cells.
At time of hospital discharge she was medically stable.
Referrals:
Jl Martinez MD [Family Provider] -
Prescriptions:
New
cefpodoxime 200 mg tablet
200 mg PO BID 7 Days Qty: 14 0RF
Continued
cetirizine [Zyrtec] 10 mg Tablet
10 mg PO DAILY
valsartan 160 mg Tablet
160 mg PO DAILY
Held
hydrochlorothiazide 25 mg Tablet
25 mg PO DAILY
Hold Instructions: Hold due to hyponatremia, can discuss with PCP about whether or not to restart this eventually
Discharge Orders:
Discharge Patient (As Directed); Ordered 01/09/25
Ordered By: Johnny Gallegos
Discharge Date and Time
Print Language: SYRIAC
--- NOTE | 2025-01-09 13:31 | W.PN.NEPH.PH ---
Today's Communication / Plan
-
Okay for discharge from renal no renal follow-up needed
Assessment/Plan
-
Impression.
Hyponatremia.
Hypertension.
Tobacco use.
Dizziness
Plan.
TSH within normal limits
Follow BMP
Fluid restriction 40 ounces per day
No hypertonic or [place] required
Sodium 133 okay for discharge
-
-
Date of Service: January 09, 2025
CC / HPI / ROS
-
No chest pain or shortness of breath
No nausea or vomiting eating well
No overnight events
Labs
-
Labs:
WBC 10.1 10^3/uL (4.8-10.8) 01/09/25 08:13
RBC 4.32 10^6/uL (4.20-5.40) 01/09/25 08:13
Hgb 14.0 g/dL (12.0-16.0) 01/09/25 08:13
Hct 39.4 % (37.0-47.0) 01/09/25 08:13
Plt Count 427 10^3/uL (130-400) H 01/09/25 08:13
Sodium 133 mmol/L (135-145) L 01/09/25 08:13
Potassium 4.1 mmol/L (3.5-5.1) 01/09/25 08:13
Chloride 94 mmol/L (98-107) L 01/09/25 08:13
Carbon Dioxide 30 mmol/L (22-30) 01/09/25 08:13
BUN 19 mg/dl (7-17) H 01/09/25 08:13
Creatinine 0.8 mg/dL (0.6-1.0) 01/09/25 08:13
eGFR > 60.00 01/09/25 08:13
Glucose 114 mg/dl (70-99) H 01/09/25 08:13
Calcium 8.9 mg/dl (8.4-10.2) 01/09/25 08:13
Albumin 3.0 g/dl (3.5-5.0) L 01/08/25 08:11
Physical Exam
-
Vital Signs:
Vital Signs
Temp Pulse Resp BP Pulse Ox
99.0 F 113 18 138/87 96
01/09/25 07:39 01/09/25 07:39 01/09/25 07:39 01/09/25 07:39 01/09/25 07:39
Respiratory:: Bilateral: CTA
Lung Excursion:: Normal
Abdomen:: Soft
Bowel Sounds:: Normal
Extremity Edema:: None: Bilateral:
[2025-01-09] MEDS: AUGMENTIN 875 MG/125 MG 1 TABLET PO (14:47)
[2025-01-09 14:53] VITALS: BP 126/72
== END 2025-01-09 15:32 | disposition home or self-care (01) | DRG 640 ==
LOC: 1 ACUTE 19:11
PROVIDERS: Student in an Organized Health Care Education/Training Program; ADMITTING PHYSICIAN Hospitalist; ATTENDING PHYSICIAN Internal Medicine; CONSULT PHYSICIAN Specialist; EMERGENCY PHYSICIAN Emergency Medicine; FAMILY PHYSICIAN Internal Medicine
DX: E87.1 Hypo-osmolality and hyponatremia (principal); J18.9 Pneumonia, unspecified organism; Z66 Do not resuscitate; F17.210 Nicotine dependence, cigarettes, uncomplicated; I10 Essential (primary) hypertension; Z79.899 Other long term (current) drug therapy
CPT/HCPCS: 71260; 74177; 80048; 80053; 85025; 87502; 87811; 99285; 99406; Q9967

== ENCOUNTER → 2025-01-22 11:39 | Outpatient (REF) | payer MEDICARE, SELFPAY ==
[2025-01-22 16:06] LABS: Blood Urea Nitrogen 16 mg/dl (7-17); Calcium 9.3 mg/dl (8.4-10.2); Carbon Dioxide 27 mmol/L (22-30); Chloride 105 mmol/L (98-107); Glucose 92 mg/dl (70-99); Potassium 3.8 mmol/L (3.5-5.1); Sodium 138 mmol/L (135-145); eGFR > 60.00
[2025-01-22 16:17] LABS: Free T4 1.53 ng/dl (0.78-2.19)
[2025-01-22 16:31] LABS: TSH 0.97 uIU/ml (0.47-4.68)
== END ==
LOC: HWLAB 11:39
PROVIDERS: ATTENDING PHYSICIAN Internal Medicine
DX: I10 Essential (primary) hypertension (principal); E87.1 Hypo-osmolality and hyponatremia
CPT/HCPCS: 36415; 80048; 84439; 84443

== ENCOUNTER → 2025-02-13 09:59 | Outpatient (REF) | payer MEDICARE, SELFPAY | LOC: HWRAD 09:59 | PROVIDERS: ATTENDING PHYSICIAN Internal Medicine | DX: R42 Dizziness and giddiness (principal) | CPT/HCPCS: 70450 ==

== ENCOUNTER → 2025-04-05 09:22 | Outpatient (REF) | payer MEDICARE, SELFPAY ==
[2025-04-05 13:45] LABS: Blood Urea Nitrogen 21 mg/dl (7-17); Calcium 9.6 mg/dl (8.4-10.2); Carbon Dioxide 29 mmol/L (22-30); Chloride 101 mmol/L (98-107); Glucose 89 mg/dl (70-99); Potassium 4.6 mmol/L (3.5-5.1); Sodium 135 mmol/L (135-145); eGFR > 60.00
== END ==
LOC: HWLAB 09:22
PROVIDERS: ATTENDING PHYSICIAN Internal Medicine
DX: I10 Essential (primary) hypertension (principal)
CPT/HCPCS: 36415; 80048

== ENCOUNTER → 2025-04-17 10:08 | Outpatient (REF) | payer MEDICARE, SELFPAY | LOC: HWRCS 10:08 | PROVIDERS: ATTENDING PHYSICIAN Internal Medicine | DX: I10 Essential (primary) hypertension (principal); M79.89 Other specified soft tissue disorders | CPT/HCPCS: 93306; 93971 ==